=== PATIENT | male | born 1965 | race Caucasian/White ===

== ENCOUNTER 2018-09-02 05:31 | Day surgery (SDC) | payer BC ==
[~2018-09-02] VITALS: Ht 185.4 cm; Wt 97.1 kg
--- NOTE | ~2018-09-02 | EKG ---
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 09/02/18 [id number] Raji Heard MD, FACC /EPI
--- NOTE | ~2018-09-02 | O ---
[facility] [place] [address] OPERATIVE REPORT Name: ISABEL LEE Room #: 150-6 [facility]..#: [id number] Admission: 09/02/18 Attend Phys: David Hui MD Discharge: Date of : 63 Report #: [id number] THIS REPORT FOR: //name// CC: David Hui Physician staff MARLINE MCKEON DATE OF SERVICE: 09/02/2018 PREOPERATIVE DIAGNOSES: Deviated nasal septum, nasal airway obstruction and chronic maxillary and ethmoid sinusitis. POSTOPERATIVE DIAGNOSES: Deviated nasal septum, nasal airway obstruction and chronic maxillary and ethmoid sinusitis. OPERATIVE PROCEDURES: Nasal septoplasty, endoscopic bilateral maxillary antrostomies with removal of tissue and bilateral complete ethmoidectomies. ANESTHESIA: General by laryngeal mask. DESCRIPTION OF PROCEDURE: The patient was taken to the operating room and placed in a supine position. General anesthesia was induced by laryngeal mask. Once adequate general anesthesia was obtained, local nasal anesthesia was induced by submucoperichondrial injection of 1% lidocaine with 1:100,000 epinephrine and topical application of cocaine solution. The patient was then draped in a sterile manner. The patient had a nasal septal deviation, primarily to the left side. A hemitransfixion incision was placed on the left side of the nose and the mucoperichondrium and mucoperiosteum were elevated off of the septum. The cartilage was incised in front of the bony cartilaginous junction and a portion of cartilage and bone were removed from the midportion of the septum. There was a large septal spur along the floor, consisting of hypertrophic cartilage and a fracture of the maxillary crest. The cartilage was removed as a long strip and the maxillary crest was infractured and rongeured. Finally, I isolated the anterior cartilaginous septum at the free edge on both sides and trimmed 2 mm of free edge cartilage and then fitted into a columellar pocket. After these maneuvers, the septum sat more in the midline. The hemitransfixion incision was then closed with 4-0 chromic suture and a 4-0 plain mattress sutures placed as well. The left nasal cavity was visualized with the endoscope and the middle turbinate was deviated medially. The uncinate process was removed using the microdebrider and the natural opening of the maxillary sinus was located. It was enlarged in a posterior inferior manner by removing the soft fontanelle. An ethmoidectomy was performed by removing the ethmoidal bulla and then following the ethmoid air cells back to the basal lamella and then forward along the lamina papyracea and fovea ethmoidalis to complete the ethmoidectomy anteriorly. FloSeal was placed into the ethmoid cavity and middle meatus for hemostasis. The exact same procedure was performed on the left side. [address] [address] OPERATIVE REPORT Name: ISABEL LEE Room #: 150-6 [facility]#: [id number] Admission: 09/02/18 Attend Phys: David Hui MD Discharge: Date of : 63 Report #: [id number] The patient tolerated the procedure well. Blood loss approximately 25 mL. The patient was then awoken and taken to the recovery room in stable condition for postoperative monitoring. By: [id number] David Hui MD /nt
--- NOTE | ~2018-09-02 | H ---
[facility] [place] [address] HISTORY AND PHYSICAL Name: ISABEL LEE Room #: 150-6 [facility]..#: [id number] Admission: 09/02/18 Attend Phys: David Hui MD Discharge: Date of : 63 Report #: [id number] THIS REPORT FOR: //name// CC: David Hui Physician staff MARLINE MCKEON DATE OF SERVICE: 09/02/2018 HISTORY OF PRESENT ILLNESS: The patient is having problems with his sinuses. 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 He has congestion and intermittent sinusitis causing drainage from the left eye area. He does not breathe very well through the left side of his nose. A CT scan of his sinuses shows a severely deviated nasal septum to the left side with mucous membrane thickening at the entrances of the maxillary sinuses and into the ethmoid sinuses on both sides. PAST MEDICAL HISTORY: Otherwise, significant for high blood pressure. He takes medication for it, but he is not sure of the name. ALLERGIES: HE IS ALLERGIC TO MORPHINE. PHYSICAL EXAMINATION: He has a severely deviated nasal septum to the left side with the septum actually touching the lateral wall of the nose. He had some mild swelling on the right. His oropharynx and oral cavity were clear. IMPRESSION: Deviated nasal septum and chronic maxillary and ethmoid sinusitis. PLAN: Nasal septoplasty, endoscopic bilateral maxillary antrostomies and complete ethmoidectomies. <ELECTRONICALLY SIGNED> By: David Hui MD 09/02/18 0825 [id number] David Hui MD /nt
[~2018-09-02 05:31] MED LIST: ADULT ONE DAI200 MCG PO; FLONASE 0.05%50 MCG NASAL; LISINOPRIL-HCT1 EACH PO; NAPROSYN500 MG PO
[2018-09-02 07:22] LABS: CALCIUM 9.5 mg/dL (8.5-10.1); CREATININE 1.1 mg/dL (0.7-1.3); POTASSIUM 3.7 mmol/L (3.5-5.1)
[2018-09-02 07:49] VITALS: BP 139/88
[2018-09-02 10:36] VITALS: BP 139/88
== END 2018-09-02 11:05 | disposition home or self-care (01) ==
LOC: OR 05:31 → TBA 05:32 → OR 09:19
PROVIDERS: Otolaryngology
DX: J34.2 Deviated nasal septum (principal); J32.2 Chronic ethmoidal sinusitis; J32.0 Chronic maxillary sinusitis; J34.89 Other specified disorders of nose and nasal sinuses; I10 Essential (primary) hypertension; Z88.6 Allergy status to analgesic agent; Z79.899 Other long term (current) drug therapy; Z98.890 Other specified postprocedural states
CPT/HCPCS: 50010; 50101; 50386; 50398; 51751; 56524; 56528; 56635; 62110; 62900; 64037; 70005